=== PATIENT | female | born 1945 | race Caucasian/White ===

== ENCOUNTER 2017-02-24 22:49 | Inpatient (IN) | payer MEDICARE, OTHER ==
[~2017-02-24] VITALS: Ht 157.5 cm; Wt 49.6 kg
[2017-02-24 23:37] VITALS: BP 176/95; PULSE 90; RESP 18; TEMP 98.8; O2SAT 99
[2017-02-25] VITALS (11 sets, daily range): BP systolic 115–174; BP diastolic 78–99; PULSE 92–112; RESP 16–18; TEMP 97.3–99.4; O2SAT 97–100
[2017-02-25] MEDS ORDERED: POTA10CA PO (00:06)
[2017-02-25] MEDS ORDERED: DAPA1TAB PO (00:06)
[2017-02-25] MEDS ORDERED: HUMU70IN (00:06)
[2017-02-25] MEDS ORDERED: SIMV10TA PO (00:06)
[2017-02-25] MEDS ORDERED: ULTR50TA5 PO (00:06)
[2017-02-25] MEDS ORDERED: NORT10CA PO (00:06)
[2017-02-25] MEDS ORDERED: SODIUM CHLORID 0.9% 500 ML INJ 500 ML IV ONE ×2 (01:30→03:45)
[2017-02-25] MEDS ORDERED: ONDANSETRON HCL 4 MG/2 ML VIAL IVP ONE (01:30)
[2017-02-25] MEDS ORDERED: SODIUM CHLORIDE 0.9% FLUSH 10 ML FLUSH IVF PRN ×2 (01:30→06:00)
[2017-02-25 01:39] LABS: AUTOMATED NEUTROPHIL # 5.6 TH/MM3 (1.8-7.7); BASOPHIL % 0.4 % (0.0-2.0); EOSINOPHIL % 0.4 % (0.0-4.0); HEMATOCRIT 47.2 % (35.0-46.0); HEMO FLAGS DIFF FINAL; LYMPH % 20.8 % (9.0-44.0); LYMPHOCYTE # 1.5 TH/MM3 (1.0-4.8); MEAN CELL VOLUME 85.3 FL (80.0-100.0); MEAN CORPUSCULAR HEMOGLOBIN 27.2 PG (27.0-34.0); MEAN CORPUSCULAR HGB CONC 31.9 % (32.0-36.0); MONO % 3.3 % (0.0-8.0); NEUT % 75.1 % (16.0-70.0); PLATELET COUNT 196 TH/MM3 (150-450); RED BLOOD COUNT 5.54 MIL/MM3 (4.00-5.30); RED CELL DISTRIBUTION WIDTH 12.5 % (11.6-17.2); WHITE BLOOD COUNT 7.4 TH/MM3 (4.0-11.0)
[2017-02-25 01:46] LABS: CHLORIDE 108 MEQ/L (98-107); POTASSIUM 3.6 MEQ/L (3.5-5.1); SODIUM (NA) 144 MEQ/L (136-145)
[2017-02-25 01:50] LABS: ANION GAP 13 MEQ/L (5-15); BICARBONATE 22.8 MEQ/L (21.0-32.0)
[2017-02-25 01:51] LABS: BLOOD UREA NITROGEN 18 MG/DL (7-18); MAGNESIUM 2.2 MG/DL (1.5-2.5)
[2017-02-25 01:53] LABS: ALT (GPT) 45 U/L (10-53); AST (GOT) 36 U/L (15-37); GLOMERULAR FILTRATION RATE 49 ML/MIN (>89)
--- NOTE | 2017-02-25 01:53 | RADRPT ---
EXAM DATE/TIME: 02/25/2017 01:42 [facility] COMPARISON: No previous studies available for comparison. INDICATIONS : Chest discomfort, weakness for 1 week MEDICAL HISTORY : None. SURGICAL HISTORY : None. ENCOUNTER: Initial ACUITY: 1 week PAIN SCORE: 0/10 LOCATION: Bilateral chest FINDINGS: A single view of the chest demonstrates the lungs to be symmetrically aerated without evidence of mas s, infiltrate or effusion. The cardiomediastinal contours are unremarkable. Osseous structures are intact. CONCLUSION: Normal examination for a patient of this age. Rashaad Lan MD on February 25, 2017 at 1:51 Board Certified Radiologist. This report was verified electronically.
[2017-02-25 01:55] LABS: TOTAL BILIRUBIN ADULT 0.9 MG/DL (0.2-1.0)
[2017-02-25 01:56] LABS: ALKALINE PHOSPHATASE 98 U/L (45-117)
[2017-02-25 02:04] LABS: CREATINE KINASE 46 U/L (26-192)
[2017-02-25 02:51] LABS: BLOOD, URINE TRACE (NEG); KETONE, URINE 40 mg/dL (NEG); PH, URINE 5.5 (5.0-8.5)
[2017-02-25 02:53] LABS: GLUCOSE,URINE 1000 OR GREATER mg/dL (NEG); NITRITE,URINE POS (NEG); URINE COLOR YELLOW (YELLW/STRAW)
[2017-02-25 02:56] LABS: BACTERIA, URINE MANY /hpf; COMMENT (UR) CULTURE INDICATED; CULTURE IF INDICATED CULTURE INDICATED; SQUAMOUS EPITHELIAL CELL URINE 0-5 /hpf (0-5)
[2017-02-25] MEDS ORDERED: cefTRIAXone INJ 1,000 MG in SODIUM CHLORIDE 0.9% INJ 100 ML IV ONE (03:45)
[2017-02-25] MEDS ORDERED: KETOROLAC TROMETHAMINE 30 MG/ML (IVP) VIAL IV PUSH ONE (03:45)
--- NOTE | 2017-02-25 03:49 | PD ---
HPI Chief Complaint: GI Complaint Time Seen by Provider: 01:27 Travel History International Travel<30 days: No Contact w/Intl Traveler<30days: No Traveled to known affect area: No History of Present Illness HPI 71-year-old female presents to the emergency department by private transportation the care of her sober house for evaluation of nausea and GI upset intermittent vomiting 3 weeks. Patient reportedly states she 5 decided to come to the emergency room because symptoms seem to worsen today. Patient was seen by her primary care provider earlier in the day and was given a refill of her prescription nortriptyline. Patient states that she did take a one-time dose. Patient states she typically has control of her nausea and GI upset if she takes her nortriptyline. Patient denies any diarrhea. Patient's had no bilious emesis hematemesis or coffee-ground emesis. Patient denies melena hematochezia. Patient has not noticed any dysuria frequency or urgency. Patient does not report polyuria or polydipsia or polyphagia. Patient does not report any weight loss or weight change. Patient had no chest pain or shortness of breath. Patient's had some generalized abdominal discomfort just preceding nausea or vomiting but denies any abdominal pain at this time. Patient's had no respiratory illness symptoms. Patient's had no injury or fall. Patient does have history of diabetes anxiety and dyslipidemia. Diabetes reportedly has been well-controlled. Patient's continued to have bowel movements and flatus and occasional diarrhea. PFSH Past Medical History Narrative Medical Dyslipidemia anxiety diabetes gastric bypass cholecystectomy appendectomy; no tobacco use; nursing notes reviewed Anxiety: Yes High Cholesterol: Yes Diabetes: Yes Patient Takes Glucophage: No Diminished Hearing: No Gastrointestinal Disorders: Yes Psychiatric: Yes Tetanus Vaccination: Unknown Influenza Vaccination: Yes ?: Not Menopausal: Yes Tubal Ligation: Yes Past Surgical History Abdominal Surgery: Yes (gastric bypass) Appendectomy: Yes Cholecystectomy: Yes Social History Alcohol Use: No Tobacco Use: No Substance Use: No Allergies-Medications (Allergen,Severity, Reaction): Coded Allergies: No Known Allergies (Unverified , 02/25/17) Reported Meds & Prescriptions Reported Meds & Active Scripts Active Reported Humulin 70-30 Inj (Insulin NPH Isophane-Reg (Human) 70-30 Inj) 1,000 Unit/10 Ml Vial Farxiga (Dapagliflozin) 5 Mg Tab 5 Mg PO DAILY Simvastatin 10 Mg Tab 10 Mg PO DAILY Nortriptyline (Nortriptyline HCl) 10 Mg Cap 10 Mg PO HS Ultram (Tramadol HCl) 50 Mg Tab 50 Mg PO Q8H PRN Potassium Chloride ER (Potassium Chloride) 10 Meq Cap 10 Meq PO BID Review of Systems Except as stated in HPI: all other systems reviewed are Neg General / Constitutional: No: Fever, Chills HENT: No: Congestion Cardiovascular: No: Chest Pain or Discomfort, Palpitations, Tachycardia, Diaphoresis Respiratory: No: Shortness of Breath Gastrointestinal: Positive: Nausea, Vomiting, Diarrhea, Abdominal Pain ( intermittent abdominal discomfort), No: Hematemesis, Hematochezia, Constipation , Loss of Appetite Genitourinary: No: Urgency, Frequency, Dysuria Musculoskeletal: No: Myalgias, Arthralgias Skin: No Rash Neurologic: No: Weakness Psychiatric: Positive: Anxiety Endocrine: No: Polyuria, Polydipsia Hematologic/Lymphatic: No: Lymph Node Enlargement Physical Exam Narrative GENERAL: Thin well-developed well-nourished female in no acute distress no respiratory distress SKIN: Warm and dry. HEAD: Normocephalic. EYES: No scleral icterus. No injection or drainage. NECK: Supple, trachea midline. No JVD or lymphadenopathy. CARDIOVASCULAR: Increased Regular rate and rhythm without murmurs, gallops, or rubs. RESPIRATORY: Breath sounds equal bilaterally. No accessory muscle use. GASTROINTESTINAL: Abdomen soft, non-tender, no guarding or rebound, no palpable mass no palpable pulsatile mass, nondistended. MUSCULOSKELETAL: No cyanosis, or edema. BACK: Nontender without obvious deformity. No CVA tenderness. Data Data Last Documented VS Vital Signs Date Time Temp Pulse Resp B/P Pulse Ox O2 Delivery O2 Flow Rate FiO2 02/25/17 05:19 94 18 137/90 97 Room Air 02/25/17 00:07 98.8 Orders Complete Blood Count With Diff (02/25/17 01:27) Comprehensive Metabolic Panel (02/25/17:) Urinalysis - C+S If Indicated (02/25/17:) Lipase (02/25/17:) Iv Access Insert/Monitor (02/25/17:) Ecg Monitoring (02/25/17:) Oximetry (7/20/17 01:27) Ondansetron Inj (Zofran Inj) (02/25/17 01:30) Sodium Chloride 0.9% Flush (Ns Flush) (02/25/17 01:30) Chest, Single Ap (02/25/17 01:27) Sodium Chlorid 0.9% 500 Ml Inj (Ns 500 M (02/25/17 01:30) Troponin I (02/25/17 01:27) Magnesium (Mg) (02/25/17 01:27) Ckmb (Isoenzyme) Profile (02/25/17 01:27) Electrocardiogram (02/25/17 ) Urine Culture (02/25/17 02:40) Blood Culture (02/25/17 03:44) Ceftriaxone Inj (Rocephin Inj) (02/25/17 03:45) Ketorolac Inj (Toradol Inj) (02/25/17 03:45) Blood Glucose (02/25/17 03:44) Sodium Chlorid 0.9% 500 Ml Inj (Ns 500 M (02/25/17 03:45) Ondansetron Inj (Zofran Inj) (02/25/17 04:00) Ct Abd/Pel W/O Iv Contrast (02/25/17 ) Metoclopramide Inj (Reglan Inj) (02/25/17 06:00) Admit Order (Ed Use Only) (02/25/17 ) ^ Saline Lock (02/25/17 05:55) Resp Oxygen Jose Martin C Titrat 1-4 L (02/25/17 ) Notify Dr: Other (02/25/17 05:55) Sodium Chloride 0.9% Flush (Ns Flush) (02/25/17 09:00) Sodium Chloride 0.9% Flush (Ns Flush) (02/25/17 06:00) Labs Laboratory Tests Test 02/25/17 02/25/17 01:36 02:40 White Blood Count 7.4 TH/MM3 Red Blood Count 5.54 MIL/MM3 Hemoglobin 15.1 GM/DL Hematocrit 47.2 % Mean Corpuscular Volume 85.3 FL Mean Corpuscular Hemoglobin 27.2 PG Mean Corpuscular Hemoglobin 31.9 % Concent Red Cell Distribution Width 12.5 % Platelet Count 196 TH/MM3 Mean Platelet Volume 10.5 FL Neutrophils (%) (Auto) 75.1 % Lymphocytes (%) (Auto) 20.8 % Monocytes (%) (Auto) 3.3 % Eosinophils (%) (Auto) 0.4 % Basophils (%) (Auto) 0.4 % Neutrophils # (Auto) 5.6 TH/MM3 Lymphocytes # (Auto) 1.5 TH/MM3 Monocytes # (Auto) 0.2 TH/MM3 Eosinophils # (Auto) 0.0 TH/MM3 Basophils # (Auto) 0.0 TH/MM3 CBC Comment DIFF FINAL Differential Comment Sodium Level 144 MEQ/L Potassium Level 3.6 MEQ/L Chloride Level 108 MEQ/L Carbon Dioxide Level 22.8 MEQ/L Anion Gap 13 MEQ/L Blood Urea Nitrogen 18 MG/DL Creatinine 1.10 MG/DL Estimat Glomerular Filtration 49 ML/MIN Rate Random Glucose 230 MG/DL Calcium Level 9.5 MG/DL Magnesium Level 2.2 MG/DL Total Bilirubin 0.9 MG/DL Aspartate Amino Transf 36 U/L (AST/SGOT) Alanine Aminotransferase 45 U/L (ALT/SGPT) Alkaline Phosphatase 98 U/L Total Creatine Kinase 46 U/L Troponin I 0.02 NG/ML Total Protein 7.7 GM/DL Albumin 3.8 GM/DL Lipase 153 U/L Urine Color YELLOW Urine Turbidity SLIGHT Urine pH 5.5 Urine Specific [place] 1.033 Urine Protein NEG mg/dL Urine Glucose (UA) 1000 OR GREATER mg/dL Urine Ketones 40 mg/dL Urine Occult Blood TRACE Urine Nitrite POS Urine Bilirubin NEG Urine Leukocyte Esterase NEG Urine RBC 3-5 /hpf Urine WBC 3-5 /hpf Urine Squamous Epithelial 0-5 /hpf Cells Urine Bacteria MANY /hpf Microscopic Urinalysis Comment CULTURE INDICATED MDM Medical Decision Making Medical Screen Exam Complete: Yes Emergency Medical Condition: Yes Medical Record Reviewed: Yes Interpretation(s) CBC & BMP Diagram 02/25/17 01:36 Urine: Positive nitrites and many bacteria culture indicated also positive glucose and ketones EKG sinus rhythm with sinus arrhythmia QS anteriorly and inferiorly age- indeterminate no acute ST elevation or injury pattern change noted CK: 46, not elevated; troponin I 0.02, not elevated LFTs/lipase: Values in normal range Last Impressions Chest X-Ray 02/25/17 7 Signed Impressions: Service Date/Time: February 01:42 - CONCLUSION: Normal examination for a patient of this age. Rashaad J. Siragusa, MD CT abd/pel: no bowel obstruction and no obstructive uropathy CONCLUSION: 1. No calcified renal stones or hydronephrosis. 2. Multiple splenic granulomas. 3. No acute abdominal or pelvic pathology. Rashaad Lan MD on February 25, 2017 at 5:49 Board Certified Radiologist. This report was verified electronically. Differential Diagnosis Generalized weakness, anxiety, vomiting, electrolyte disturbance, uncontrolled diabetes, UTI, diverticulitis, bowel obstruction, gastroparesis, medication withdrawal/adverse reaction; also to consider DKA, ACS, IN Narrative Course Patient administered IV fluid bolus along with Zofran 4 mg IV and specimens collected and sent for resulting Patient given additional fluid bolus as well as repeat dose of Zofran Identified to have abnormal urinalysis given a dose of Rocephin after blood cultures obtained Patient complains of nausea and intermittent tachycardia suspected patient has some withdrawal-type symptoms after being off of her nortriptyline. Blood sugar seems adequately controlled after hydration although does have some mild ketones on urinalysis glucosuria bicarbonate and anion gap are found to be in normal range Patient will be admitted for observation for ongoing fluid hydration IV antibiotics and diabetic management. Chest x-ray reveals no subdiaphragmatic free air and no lobar infiltrate. Some patient for CT abdomen and pelvis Patient returns from CT continues to complain of nausea Reglan 10 mg IV administered plan will be to admit for observation for further evaluation of intractable nausea and vomiting most likely reflects gastroparesis and then ongoing management of UTI no flank pain no fever or chills no white count elevation low suspicion at this time for pyelonephritis or obstructive uropathy. Also consider bowel obstruction although patient with nausea vomiting has had bowel movements and flatus as well as nondistended abdomen. Patient's case discussed with on-call [facility] hospitalist will admit to Dr. Carmichael's service as observation Sepsis Criteria SIRS Criteria (2 or more): Heart rate over 90 Sepsis Criteria (SIRS+source): Infect source susp/known (urine) Physician Communication Physician Communication call placed to service discussed with Juice Sevilla--OBS to Dr Carmichael Diagnosis Primary Impression: Intractable nausea and vomiting Qualified Code: R11.2 - Intractable vomiting with nausea, unspecified vomiting type Additional Impressions: UTI (urinary tract infection) Qualified Code: N39.0 - Urinary tract infection without hematuria, site unspecified Diabetes Admitting Information Admitting Physician Requests: Observation Brianna Hendrickson MD Feb 25, 2017 03:49
[2017-02-25] MEDS ORDERED: ONDANSETRON HCL 4 MG/2 ML VIAL IV PUSH ONE (04:00)
--- NOTE | 2017-02-25 05:55 | RADRPT ---
EXAM DATE/TIME: 02/25/2017 05:32 [facility] COMPARISON: No previous studies available for comparison. INDICATIONS : Hematuria. ORAL CONTRAST: No oral contrast ingested. RADIATION DOSE: 6.32 CTDIvol (mGy) MEDICAL HISTORY : Diabetes mellitus type 2. SURGICAL HISTORY : Appendectomy. Cholecystectomy.Gastric bypass. Tubal ligation. ENCOUNTER: Initial ACUITY: 3 weeks PAIN SCALE: 0/10 LOCATION: abdomen TECHNIQUE: Volumetric scanning of the abdomen and pelvis was performed. Using automated exposure control and ad justment of the mA and/or kV according to patient size, radiation dose was kept as low as reasonably achievable to obtain optimal diagnostic quality images. DICOM format image data is available electro nically for review and comparison. The lack of IV contrast limits the diagnosis for certain organ pa thology. FINDINGS: LOWER LUNGS: The visualized lower lungs are clear. Small hernia at the GE with evidence of previous surgery LIVER: Homogeneous density without lesion. There is no dilation of the biliary tree. No gallbladder, surgi jessica removed. SPLEEN: Normal size without lesion. Multiple splenic granulomas. PANCREAS: Within normal limits. KIDNEYS: Normal in size and shape. There is no mass, stone, or hydronephrosis. The ureters are nondilated. ADRENAL GLANDS: Within normal limits. VASCULAR: There is no aortic aneurysm. BOWEL/MESENTERY: The stomach, small bowel, and colon demonstrate no acute abnormality. There is no free intraperitone al air or fluid. No inflammatory changes. There is stool throughout colon. ABDOMINAL WALL: Within normal limits. RETROPERITONEUM: There is no lymphadenopathy. BLADDER: No wall thickening or mass. No bladder stones. REPRODUCTIVE: Within normal limits. Multiple calcified phleboliths are seen deep in the pelvis. INGUINAL: There is no lymphadenopathy or hernia. MUSCULOSKELETAL: Within normal limits for patient age. Bony degenerative changes. CONCLUSION: 1. No calcified renal stones or hydronephrosis. 2. Multiple splenic granulomas. 3. No acute abdominal or pelvic pathology. Rashaad Lan MD on February 25, 2017 at 5:49 Board Certified Radiologist. This report was verified electronically.
[2017-02-25] MEDS ORDERED: METOCLOPRAMIDE HCL 10 MG/2 ML VIAL IV PUSH ONE (06:00)
[2017-02-25] MEDS: SODIUM CHLOR 0.9% 1000 ML INJ 1,000 ML IV SCH ×2 (07:11→20:35)
[2017-02-25] MEDS: SODIUM CHLORIDE 0.9% FLUSH 10 ML FLUSH IV FLUSH SCH ×2 (08:34→21:00)
[2017-02-25] MEDS ORDERED: POTASSIUM CHLORIDE 10 MEQ CAP PO SCH (09:00)
[2017-02-25] MEDS ORDERED: DAPAGLIFLOZIN 5 MG PO SCH (09:30)
--- NOTE | 2017-02-25 09:45 | MH ---
cc: DARIEN WASHBURN MD DATE OF ADMISSION: 02/25/2017 CHIEF COMPLAINT Abdominal pain, nausea, vomiting, diarrhea. HISTORY OF PRESENT ILLNESS This is a 71-year female with past medical-surgical history significant for hyperlipidemia, anxiety, diabetes mellitus, diabetic gastropathy and gastric bypass surgery, cholecystectomy, appendectomy, brought to the ER at [facility] via private vehicle for evaluation of nausea and GI upset symptoms and intermittent vomiting. The patient reports that she decided to come to the ER after seeing her primary care doctor earlier yesterday and given a prescription for nortriptyline. The patient stated that she did take one-time dose and that typically has controlled her nausea and upset GI symptoms when she takes her nortriptyline. The patient denies any diarrhea in the ER but when I asked the patient the said she has some diarrhea and denies any blood in the stool, denies any blood in the vomitus. Denies any frequent painful urination, burning urination, polyuria, polydipsia. Denies any chest pain, shortness of breath. Has some generalized mild diffuse abdominal discomfort. Other than that, nothing significant. PAST MEDICAL-SURGICAL HISTORY As dictated above. SOCIAL HISTORY Denies smoking or drinking or taking any drugs. Lives at home with a friend. She is a retired hairdresser. FAMILY HISTORY Nothing significant. ALLERGIES No known drug allergies. MEDICATIONS 1. Humulin 70/30, unknown dose and frequency. 2. Farxiga 5 mg p.o. daily. 3. Simvastatin 10 mg p.o. daily. 4. Nortriptyline 10 mg p.o. at bedtime. 5. Ultram 50 mg p.o. q.8 hours. 6. Potassium chloride ER 10 mEq p.o. b.i.d. REVIEW OF SYSTEMS Review of systems is positive for nausea, vomiting, mild diarrhea. All other review of systems are negative. PHYSICAL EXAMINATION GENERAL: This is 71-year female laying on the bed, not in any acute distress. VITAL SIGNS: Temperature 99.4, heart rate 112, respirations 18, blood pressure 162/88, O2 saturation 97% room air. HEENT: Normocephalic, atraumatic. EOMI. PERRLA. Oral mucosa moist. NECK: Supple. No visible thyromegaly or neck mass. Trachea central. CVS: Regular rate and rhythm. RESPIRATIONS: Clear to auscultation bilaterally. ABDOMEN: Soft, nontender. Bowel sounds audible. EXTREMITIES: No cyanosis or clubbing. Full range of motion of all extremities. NEURO: Awake, alert, oriented x 4. No focal deficits. SKIN: Warm and dry. PSYCH: The patient is cooperative. Mood and affect is normal. LABORATORY DATA CBC totally unremarkable except for RBC count 5.54 - high, hematocrit 47.2 - high, MCHC 31.9 - low. BUN of 18, creatinine 1.10, GFR 49, glucose random 230 - high. Troponin-I 0.02, lipase 153. LFTs are normal. Urine examination showed glucose greater than 1000, ketones of 40, trace of occult blood, nitrite positive. Blood culture x 2 done, negative so far. Urine culture pending. IMAGING STUDIES CT of abdomen and pelvis was done, shows normal examination. Chest x-ray was done, shows normal examination. CT abdomen and pelvis was done shows noncalcified renal stone or hydronephrosis, multiple splenic granulomas, no acute abdominal or pelvic pathology. ASSESSMENT AND PLAN 1. This is a 71-year-old female who came to the ER diagnosed with nausea, vomiting secondary to most likely diabetic gastroparesis. The patient is on Zofran 4 mg IV q. 4 hours p.r.n. and metoclopramide 10 mg IV q.6 hours. Nausea and vomiting improved. 2. Urinary tract infection. The patient on Rocephin 1 gram IV daily. 3. History of hyperlipidemia. Continue with simvastatin 10 mg p.o. daily. 4. Diabetes mellitus, ADA 1800 calorie diet. NovoLog low-dose sliding scale. Check blood sugar a.c. and at bedtime. 5. DVT prophylaxis. SCDs. 6. GI prophylaxis. Protonix 40 mg p.o. IV daily. We are going to manage the patient on a daily basis and make recommendations on a daily basis. Darien Washburn MD EA/JESENIA /8:38 AM /9:24 AM
[2017-02-25] MEDS: PANTOPRAZOLE SODIUM 40 MG VIAL IV PUSH SCH (14:10)
[2017-02-25] MEDS: PRAVASTATIN SOD 20 MG TAB PO SCH (14:13)
[2017-02-25] MEDS: POTASSIUM CHLORIDE 10 MEQ CONTROLLED RELEASE TAB PO SCH ×2 (14:22→21:45)
--- NOTE | 2017-02-25 15:25 | EKG ---
Date Performed: 02/25/2017 Time Performed: 01:36:14 PTAGE: 71 years EKG: Sinus rhythm WITH SINUS ARRHYTHMIA POSSIBLE ANTERIOR MYOCARDIAL INFARCTION INFERIOR MYOCARDIAL INFARCTION ABNORMA L ECG NO PREVIOUS TRACING DOCTOR: Ny Deluca Interpretating Date/Time 02/25/2017 15:22:30
[2017-02-25] MEDS: TIMOLOL MALEATE 0.5% OPHT SOLN 5 ML BTL EACH EYE SCH (21:44)
[2017-02-25] MEDS: NORTRIPTYLINE HCL 10 MG CAP PO SCH (21:45)
[2017-02-25] MEDS: ONDANSETRON HCL 4 MG/2 ML VIAL IV PUSH PRN (21:49)
[2017-02-26] VITALS: BP 155/96; PULSE 72; RESP 16; TEMP 98.6; O2SAT 100
[2017-02-26] MEDS ORDERED: TEMAZEPAM 7.5 MG CAP PO PRN (01:00)
[2017-02-26 04:00] VITALS: BP 103/76; PULSE 84; RESP 16; TEMP 97.2; O2SAT 95
[2017-02-26] MEDS: cefTRIAXone 1,000 MG/NS 100 ML IV SCH ×2 (05:16)
[2017-02-26 06:32] LABS: AUTOMATED NEUTROPHIL # 5.6 TH/MM3 (1.8-7.7); BASOPHIL % 0.5 % (0.0-2.0); EOSINOPHIL # 0.1 TH/MM3 (0-0.4); EOSINOPHIL % 0.7 % (0.0-4.0); HEMATOCRIT 40.3 % (35.0-46.0); HEMO FLAGS DIFF FINAL; LYMPHOCYTE # 2.3 TH/MM3 (1.0-4.8); MEAN CELL VOLUME 85.4 FL (80.0-100.0); MEAN CORPUSCULAR HEMOGLOBIN 28.2 PG (27.0-34.0); MONO % 8.1 % (0.0-8.0); NEUT % 64.7 % (16.0-70.0); PLATELET COUNT 172 TH/MM3 (150-450); RED BLOOD COUNT 4.72 MIL/MM3 (4.00-5.30); RED CELL DISTRIBUTION WIDTH 12.8 % (11.6-17.2); WHITE BLOOD COUNT 8.7 TH/MM3 (4.0-11.0)
[2017-02-26 06:43] LABS: CHLORIDE 109 MEQ/L (98-107); POTASSIUM 3.4 MEQ/L (3.5-5.1); SODIUM (NA) 143 MEQ/L (136-145)
[2017-02-26 06:51] LABS: ANION GAP 12 MEQ/L (5-15); BICARBONATE 22.3 MEQ/L (21.0-32.0); BLOOD UREA NITROGEN 15 MG/DL (7-18)
[2017-02-26 06:54] LABS: ALT (GPT) 30 U/L (10-53); AST (GOT) 25 U/L (15-37); GLOMERULAR FILTRATION RATE 55 ML/MIN (>89); TOTAL BILIRUBIN ADULT 0.6 MG/DL (0.2-1.0)
[2017-02-26 06:56] LABS: ALKALINE PHOSPHATASE 80 U/L (45-117)
[2017-02-26 08:00] VITALS: BP 134/81; PULSE 78; RESP 16; TEMP 97.7; O2SAT 96
--- NOTE | 2017-02-26 08:27 | HHI.PR ---
Subjective History of Present Illness Patient deny any complaints no acute issue d/w BELEM Connelly. Low potassium will replace. Review of Systems Constitutional Constitutional: Fatigue, Weakness Vitals/Results Intake & Output 02/25/17 02/25/17 02/26/17 15:00 23:00 07:00 Intake Total 550 ml 524 ml Balance 550 ml 524 ml Intake Oral 550 ml IV Total 524 ml # Voids 2 # Bowel Movements 0 Vital Signs Vital Signs Date Time Temp Pulse Resp B/P Pulse Ox O2 Delivery O2 Flow Rate FiO2 02/26/17 08:00 97.7 78 16 134/81 96 02/26/17 04:00 97.2 84 16 103/76 95 02/26/17 00:00 98.6 72 16 155/96 100 02/25/17 20:35 97 21 02/25/17 20:00 97.3 96 16 115/78 97 02/25/17 16:00 97.5 101 18 143/84 99 02/25/17 12:00 98.2 112 18 152/92 99 CBC/BMP: 02/26/17 0515 02/26/17 0515 Lab Results Laboratory Tests Test 02/26/17 05:15 White Blood Count 8.7 TH/MM3 Red Blood Count 4.72 MIL/MM3 Hemoglobin 13.3 GM/DL Hematocrit 40.3 % Mean Corpuscular Volume 85.4 FL Mean Corpuscular Hemoglobin 28.2 PG Mean Corpuscular Hemoglobin 33.0 % Concent Red Cell Distribution Width 12.8 % Platelet Count 172 TH/MM3 Mean Platelet Volume 9.9 FL Neutrophils (%) (Auto) 64.7 % Lymphocytes (%) (Auto) 26.0 % Monocytes (%) (Auto) 8.1 % Eosinophils (%) (Auto) 0.7 % Basophils (%) (Auto) 0.5 % Neutrophils # (Auto) 5.6 TH/MM3 Lymphocytes # (Auto) 2.3 TH/MM3 Monocytes # (Auto) 0.7 TH/MM3 Eosinophils # (Auto) 0.1 TH/MM3 Basophils # (Auto) 0.0 TH/MM3 CBC Comment DIFF FINAL Differential Comment Sodium Level 143 MEQ/L Potassium Level 3.4 MEQ/L Chloride Level 109 MEQ/L Carbon Dioxide Level 22.3 MEQ/L Anion Gap 12 MEQ/L Blood Urea Nitrogen 15 MG/DL Creatinine 1.00 MG/DL Estimat Glomerular Filtration 55 ML/MIN Rate Random Glucose 150 MG/DL Calcium Level 8.6 MG/DL Total Bilirubin 0.6 MG/DL Aspartate Amino Transf 25 U/L (AST/SGOT) Alanine Aminotransferase 30 U/L (ALT/SGPT) Alkaline Phosphatase 80 U/L Total Protein 6.2 GM/DL Albumin 3.1 GM/DL Physical Exam General General Appearance: No Acute Distress, Comfortable Eyes Eye Exam: Pupils Equal, Pupils Reactive, Sclera White, Extraocular Movement Intact Throat Throat Exam: Oral Mucosa [place] & Moist, Oral Pharynx Normal Neck Neck Exam: Neck Supple, Trachea Midline Pulmonary Resp Exam: Clear Bilaterally, Breath Sounds Equal, No Distress Cardiology CV Exam: Regular, Normal Sinus Rhythm Gastrointestinal/Abdomen GI Exam: Soft, Non-Tender, Bowel Sounds Present Musculoskeletal MS Exam: Normal Tone Integumentary Skin Exam: Clear, Warm, Dry, Intact Extremeties Extremities Exam: No Edema Neurologic Neuro Exam: Alert, Awake, Moving All Extremities Psychiatric Psych Exam: Appropriate Responses VTE Prophylaxis VTE Prophylaxis Device: SCDs PUD Prophylasis PUD Prophylaxis: Protonix Assessment/Plan Assessment/Plan ASSESSMENT AND PLAN 1. This is a 71-year-old female who came to the ER diagnosed with nausea, vomiting secondary to most likely diabetic gastroparesis. The patient is on Zofran 4 mg IV q. 4 hours p.r.n. and metoclopramide 10 mg IV q.6 hours. Nausea and vomiting improved. 2. Urinary tract infection. The patient on Rocephin 1 gram IV daily. recheck UA. 3. History of hyperlipidemia. Continue with simvastatin 10 mg p.o. daily. 4. Diabetes mellitus, ADA 1800 calorie diet. NovoLog low-dose sliding scale. Check blood sugar a.c. and at bedtime. 5. DVT prophylaxis. SCDs. 6. GI prophylaxis. Protonix 40 mg p.o. daily. 7.Low potassium will replace and monitor. check CBC with diff CMP in AM. We are going to manage the patient on a daily basis and make recommendations on a daily basis. Discussed Condition with: Patient Darien Carmichael MD Feb 26, 2017 08:27
[2017-02-26] MEDS ORDERED: POTASSIUM CHLORIDE 10 MEQ CONTROLLED RELEASE TAB PO ONE (08:30)
[2017-02-26] MEDS: TIMOLOL MALEATE 0.5% OPHT SOLN 5 ML BTL EACH EYE SCH ×2 (08:56→22:29)
[2017-02-26] MEDS: SODIUM CHLORIDE 0.9% FLUSH 10 ML FLUSH IV FLUSH SCH ×2 (08:56→21:00)
[2017-02-26] MEDS: PRAVASTATIN SOD 20 MG TAB PO SCH (08:56)
[2017-02-26] MEDS: POTASSIUM CHLORIDE 10 MEQ CONTROLLED RELEASE TAB PO SCH ×2 (08:56→22:19)
[2017-02-26] MEDS: PANTOPRAZOLE SODIUM 40 MG VIAL IV PUSH SCH (08:57)
[2017-02-26] MEDS: SODIUM CHLOR 0.9% 1000 ML INJ 1,000 ML IV SCH ×2 (10:15→23:15)
[2017-02-26] MEDS: ONDANSETRON HCL 4 MG/2 ML VIAL IV PUSH PRN (11:03)
[2017-02-26 12:00] VITALS: BP 169/100; PULSE 71; RESP 16; TEMP 97.8; O2SAT 99
[2017-02-26 12:16] LABS: BLOOD, URINE NEG (NEG); KETONE, URINE 15 mg/dL (NEG); NITRITE,URINE NEG (NEG); PH, URINE 5.5 (5.0-8.5)
[2017-02-26 12:26] LABS: GLUCOSE,URINE 1000 OR GREATER mg/dL (NEG); METHOD OF COLLECTION CLEAN CATCH; URINE COLOR YELLOW (YELLW/STRAW)
[2017-02-26 12:28] LABS: COMMENT (UR) CULT NOT INDICATED; CULTURE IF INDICATED CULT NOT INDICATED; SQUAMOUS EPITHELIAL CELL URINE 0-5 /hpf (0-5); WBC, URINE 0-2 /hpf (0-5)
[2017-02-26 16:00] VITALS: BP 131/76; PULSE 85; RESP 17; TEMP 98; O2SAT 94
[2017-02-26] MEDS: METOCLOPRAMIDE HCL 10 MG/2 ML VIAL IV PRN (16:30)
[2017-02-26 20:00] VITALS: BP 156/100; PULSE 101; RESP 20; TEMP 98.8; O2SAT 100
[2017-02-26] MEDS: traMADol HCL 50 MG TAB PO PRN (20:31)
[2017-02-26] MEDS: NORTRIPTYLINE HCL 10 MG CAP PO SCH (22:18)
[2017-02-26] MEDS: TEMAZEPAM 7.5 MG CAP PO PRN (22:29)
[2017-02-27] VITALS: BP 104/67; PULSE 85; RESP 20; TEMP 97.5; O2SAT 98
[2017-02-27] MEDS: SODIUM CHLOR 0.9% 1000 ML INJ 1,000 ML IV SCH ×2 (00:15→08:38)
[2017-02-27] MEDS: cefTRIAXone 1,000 MG/NS 100 ML IV SCH ×2 (06:08)
[2017-02-27 06:58] LABS: AUTOMATED NEUTROPHIL # 3.5 TH/MM3 (1.8-7.7); BASOPHIL % 0.6 % (0.0-2.0); EOSINOPHIL # 0.1 TH/MM3 (0-0.4); EOSINOPHIL % 1.4 % (0.0-4.0); HEMATOCRIT 36.1 % (35.0-46.0); HEMO FLAGS DIFF FINAL; LYMPH % 43.2 % (9.0-44.0); LYMPHOCYTE # 3.2 TH/MM3 (1.0-4.8); MEAN CELL VOLUME 85.1 FL (80.0-100.0); MEAN CORPUSCULAR HEMOGLOBIN 27.4 PG (27.0-34.0); MEAN CORPUSCULAR HGB CONC 32.2 % (32.0-36.0); NEUT % 45.8 % (16.0-70.0); PLATELET COUNT 174 TH/MM3 (150-450); RED BLOOD COUNT 4.24 MIL/MM3 (4.00-5.30); RED CELL DISTRIBUTION WIDTH 13.1 % (11.6-17.2); WHITE BLOOD COUNT 7.5 TH/MM3 (4.0-11.0)
[2017-02-27 07:24] LABS: ALKALINE PHOSPHATASE 68 U/L (45-117); ALT (GPT) 27 U/L (10-53); ANION GAP 11 MEQ/L (5-15); AST (GOT) 26 U/L (15-37); BICARBONATE 20.3 MEQ/L (21.0-32.0); BLOOD UREA NITROGEN 20 MG/DL (7-18); CHLORIDE 113 MEQ/L (98-107); GLOMERULAR FILTRATION RATE 59 ML/MIN (>89); POTASSIUM 4.2 MEQ/L (3.5-5.1); SODIUM (NA) 144 MEQ/L (136-145); TOTAL BILIRUBIN ADULT 0.4 MG/DL (0.2-1.0)
[2017-02-27 08:00] VITALS: BP 140/90; PULSE 89; RESP 16; TEMP 97.5; O2SAT 100
[2017-02-27] MEDS: POTASSIUM CHLORIDE 10 MEQ CONTROLLED RELEASE TAB PO SCH ×2 (08:31→20:51)
[2017-02-27] MEDS: PRAVASTATIN SOD 20 MG TAB PO SCH (08:31)
[2017-02-27] MEDS: PANTOPRAZOLE SOD 40 MG DELAYED RELEASE TAB PO SCH (08:31)
[2017-02-27] MEDS: METOCLOPRAMIDE HCL 10 MG/2 ML VIAL IV PRN (08:31)
[2017-02-27] MEDS: TIMOLOL MALEATE 0.5% OPHT SOLN 5 ML BTL EACH EYE SCH ×2 (08:32→20:50)
[2017-02-27] MEDS: SODIUM CHLORIDE 0.9% FLUSH 10 ML FLUSH IV FLUSH SCH ×2 (09:00→20:50)
--- NOTE | 2017-02-27 09:45 | HHI.PR ---
Subjective History of Present Illness Patient still have nausea/ vomiting unalbe to tolerate any thing d/w BELEM Connelly. Low potassium resolved repeat urine analysis better. Review of Systems Constitutional Constitutional: Fatigue, Weakness Vitals/Results Intake & Output 02/26/17 02/26/17 02/27/17 15:00 23:00 07:00 Intake Total 1410 ml 1240 ml Balance 1410 ml 1240 ml Intake Oral 510 ml 240 ml IV Total 900 ml 1000 ml # Voids 2 2 # Bowel Movements 1 0 Vital Signs Vital Signs Date Time Temp Pulse Resp B/P Pulse Ox O2 Delivery O2 Flow Rate FiO2 02/27/17 08:00 97.5 89 16 140/90 100 02/27/17 00:00 97.5 85 20 104/67 98 02/26/17 20:00 98.8 101 20 156/100 100 02/26/17 16:00 98.0 85 17 131/76 94 02/26/17 12:00 97.8 71 16 169/100 99 CBC/BMP: 02/27/17 0629 02/27/17 0629 Lab Results Laboratory Tests Test 02/26/17 02/27/17 10:30 06:29 Urine Collection Type CLEAN CATCH Urine Color YELLOW Urine Turbidity CLEAR Urine pH 5.5 Urine Specific [place] 1.012 Urine Protein NEG mg/dL Urine Glucose (UA) 1000 OR GREATER mg/dL Urine Ketones 15 mg/dL Urine Occult Blood NEG Urine Nitrite NEG Urine Bilirubin NEG Urine Leukocyte Esterase NEG Urine WBC 0-2 /hpf Urine Squamous Epithelial 0-5 /hpf Cells Microscopic Urinalysis Comment CULT NOT INDICATED White Blood Count 7.5 TH/MM3 Red Blood Count 4.24 MIL/MM3 Hemoglobin 11.6 GM/DL Hematocrit 36.1 % Mean Corpuscular Volume 85.1 FL Mean Corpuscular Hemoglobin 27.4 PG Mean Corpuscular Hemoglobin 32.2 % Concent Red Cell Distribution Width 13.1 % Platelet Count 174 TH/MM3 Mean Platelet Volume 9.3 FL Neutrophils (%) (Auto) 45.8 % Lymphocytes (%) (Auto) 43.2 % Monocytes (%) (Auto) 9.0 % Eosinophils (%) (Auto) 1.4 % Basophils (%) (Auto) 0.6 % Neutrophils # (Auto) 3.5 TH/MM3 Lymphocytes # (Auto) 3.2 TH/MM3 Monocytes # (Auto) 0.7 TH/MM3 Eosinophils # (Auto) 0.1 TH/MM3 Basophils # (Auto) 0.0 TH/MM3 CBC Comment DIFF FINAL Differential Comment Sodium Level 144 MEQ/L Potassium Level 4.2 MEQ/L Chloride Level 113 MEQ/L Carbon Dioxide Level 20.3 MEQ/L Anion Gap 11 MEQ/L Blood Urea Nitrogen 20 MG/DL Creatinine 0.94 MG/DL Estimat Glomerular Filtration 59 ML/MIN Rate Random Glucose 108 MG/DL Calcium Level 8.3 MG/DL Total Bilirubin 0.4 MG/DL Aspartate Amino Transf 26 U/L (AST/SGOT) Alanine Aminotransferase 27 U/L (ALT/SGPT) Alkaline Phosphatase 68 U/L Total Protein 5.4 GM/DL Albumin 2.6 GM/DL Physical Exam General General Appearance: No Acute Distress, Comfortable Eyes Eye Exam: Pupils Equal, Pupils Reactive, Sclera White, Extraocular Movement Intact Throat Throat Exam: Oral Mucosa Power & Moist, Oral Pharynx Normal Neck Neck Exam: Neck Supple, Trachea Midline Pulmonary Resp Exam: Clear Bilaterally, Breath Sounds Equal, No Distress Cardiology CV Exam: Regular, Normal Sinus Rhythm Gastrointestinal/Abdomen GI Exam: Soft, Non-Tender, Bowel Sounds Present Musculoskeletal MS Exam: Normal Tone Integumentary Skin Exam: Clear, Warm, Dry, Intact Extremeties Extremities Exam: No Edema Neurologic Neuro Exam: Alert, Awake, Moving All Extremities Psychiatric Psych Exam: Appropriate Responses VTE Prophylaxis VTE Prophylaxis Device: SCDs PUD Prophylasis PUD Prophylaxis: Protonix Assessment/Plan Assessment/Plan ASSESSMENT AND PLAN 1. This is a 71-year-old female who came to the ER diagnosed with nausea, vomiting secondary to most likely diabetic gastroparesis. The patient is on Zofran 4 mg IV q. 4 hours p.r.n. and metoclopramide 10 mg IV q.6 hours. Nausea and vomiting still present GI consulted. 2. Urinary tract infection. The patient on Rocephin 1 gram IV daily. recheck UA...better. 3. History of hyperlipidemia. Continue with simvastatin 10 mg p.o. daily. 4. Diabetes mellitus, ADA 1800 calorie diet. NovoLog low-dose sliding scale. Check blood sugar a.c. and at bedtime. 5. DVT prophylaxis. SCDs. 6. GI prophylaxis. Protonix 40 mg p.o. daily. 7.Low potassium resolved. check CBC with diff CMP in AM. We are going to manage the patient on a daily basis and make recommendations on a daily basis. Discussed Condition with: Patient Darien Carmichael MD Feb 27, 2017 09:45
[2017-02-27 12:00] VITALS: BP 165/92; PULSE 88; RESP 16; TEMP 98.3; O2SAT 98
[2017-02-27] MEDS: traMADol HCL 50 MG TAB PO PRN ×2 (14:15→20:53)
[2017-02-27 16:00] VITALS: BP 132/92; PULSE 94; RESP 18; TEMP 98.5; O2SAT 97
[2017-02-27] MEDS: NORTRIPTYLINE HCL 10 MG CAP PO SCH (20:51)
[2017-02-27] MEDS: TEMAZEPAM 7.5 MG CAP PO PRN (20:53)
[2017-02-27 21:04] VITALS: BP 142/87; PULSE 96; RESP 18; TEMP 97.3; O2SAT 98
--- NOTE | 2017-02-27 21:44 | MB ---
cc: JADYN SCOTT M.D. DATE OF CONSULTATION 02/27/[address] Darien Carmichael REASON FOR CONSULTATION Abdominal pain, nausea, vomiting, diarrhea. HISTORY OF PRESENT ILLNESS Ms. Bradford is a very pleasant 71-year-old lady with multiple medical issues, admitted to the hospital with complaints of nausea, vomiting and diarrhea for the last few days. The patient states she has a long history of anxiety that manifests itself mostly with nausea and vomiting, responded well to amitriptyline in the past. She recently relocated here in the area and was also switched to a different anxiety medication that really did not work for her. She saw her local primary care doctor 3 days ago and she was given again amitriptyline, just started that and she says that it is working for her. She has a history of gastric bypass surgery. 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 She does not recall the diagnosis of gastroparesis, as a matter of fact she has me what does it mean even though this is in her medical record. PAST MEDICAL HISTORY Hyperlipidemia, anxiety, diabetes, gastric bypass surgery, cholecystectomy, appendectomy. Questionable gastroparesis, the patient does not know what the diagnosis mean. SOCIAL HISTORY Denies smoking, drinking or drug use. Retired hairdresser. ALLERGIES No known allergies. MEDICATIONS Medications at home: 1. Humulin. 2. Forxiga. 3. Simvastatin. 4. Nortriptyline. 5. Ultram. 6. Potassium chloride. REVIEW OF SYSTEMS At this time she denies any fever or chills, weight loss or weight gain. ENT: No alteration in baseline hearing or visual acuity. PULMONARY: Denies any chest pain, shortness of breath. GASTROINTESTINAL: As above. GENITOURINARY: Denies dysuria, hematuria. HEMATOLOGIC: No history of anemia or bleeding disorder. SKIN: No alteration in baseline skin lesion. NEUROLOGICAL: No history of TIA or CVA kind of symptoms. PHYSICAL EXAMINATION GENERAL: On clinical examination she is sitting comfortable in bed in no acute distress. VITAL SIGNS: Her temperature is 98.5, pulse is 94, respiration 18, blood pressure 132/92, pulse ox is 97. HEENT: PERRLA. NECK: No JVD. No lymphadenopathy. CHEST: Clear to auscultation and palpation. CARDIOVASCULAR: S1-S2. No murmur. ABDOMEN: Soft, nontender. Bowel sounds are present. POLICE LIAISON: Awake, alert, oriented x3. No focal signs identified. LABORATORY DATA Her CBC normal. Her CMP is essentially suggestive of glucose of 108, was 230 when she came. LFTs normal. She also had blood cultures and urine cultures which were negative. No stool studies were sent. IMAGING STUDIES The patient had a CT abdomen and pelvis which showed no calcified renal stones, which was suggestive of multiple splenic granulomas. No calcified renal stones or hydronephrosis. IMPRESSION Ms. Bradford is a very pleasant 71-year-old lady with recurrent nausea and vomiting, possible secondary to diabetic gastroparesis even though the patient states she does not know what this diagnosis means. Urinary tract infection, on antibiotics, resolved at this time. Anxiety, possible cause of her problems, better after starting "nortriptyline." RECOMMENDATIONS Continue Protonix, small meals more often, Zofran p.r.n. IV hydration. If stable, the patient can be discharged home in the morning. If continues to have nausea and vomiting consider upper endoscopy. If discharged followup with GI in 2 weeks. I would like to thank Dr. Darien Carmichael for referring her to our office for consultation. Jadyn Scott MD BSB/EO /8:39 PM /9:27 PM
[2017-02-28 00:15] VITALS: BP 115/74; PULSE 75; RESP 16; TEMP 98.1; O2SAT 97
[2017-02-28] MEDS: cefTRIAXone 1,000 MG/NS 100 ML IV SCH ×2 (06:01)
[2017-02-28 07:34] LABS: BASOPHIL # 0.1 TH/MM3 (0-0.2); BASOPHIL % 0.8 % (0.0-2.0); EOSINOPHIL # 0.1 TH/MM3 (0-0.4); EOSINOPHIL % 1.7 % (0.0-4.0); HEMATOCRIT 36.2 % (35.0-46.0); HEMO FLAGS DIFF FINAL; LYMPH % 46.3 % (9.0-44.0); LYMPHOCYTE # 3.2 TH/MM3 (1.0-4.8); MEAN CORPUSCULAR HEMOGLOBIN 27.5 PG (27.0-34.0); MEAN CORPUSCULAR HGB CONC 32.3 % (32.0-36.0); MONO % 8.3 % (0.0-8.0); NEUT % 42.9 % (16.0-70.0); PLATELET COUNT 162 TH/MM3 (150-450); RED BLOOD COUNT 4.26 MIL/MM3 (4.00-5.30); RED CELL DISTRIBUTION WIDTH 12.7 % (11.6-17.2)
[2017-02-28 07:42] LABS: CHLORIDE 110 MEQ/L (98-107); POTASSIUM 3.9 MEQ/L (3.5-5.1); SODIUM (NA) 141 MEQ/L (136-145)
[2017-02-28 07:46] LABS: ANION GAP 11 MEQ/L (5-15); BICARBONATE 19.7 MEQ/L (21.0-32.0); BLOOD UREA NITROGEN 16 MG/DL (7-18)
[2017-02-28 07:49] LABS: ALT (GPT) 24 U/L (10-53); AST (GOT) 19 U/L (15-37); GLOMERULAR FILTRATION RATE 68 ML/MIN (>89)
[2017-02-28 07:51] LABS: TOTAL BILIRUBIN ADULT 0.3 MG/DL (0.2-1.0)
[2017-02-28 07:52] LABS: ALKALINE PHOSPHATASE 70 U/L (45-117)
[2017-02-28 08:00] VITALS: BP 166/78; PULSE 86; RESP 18; TEMP 97.3; O2SAT 100
[2017-02-28] MEDS: SODIUM CHLORIDE 0.9% FLUSH 10 ML FLUSH IV FLUSH SCH (09:00)
[2017-02-28] MEDS: TIMOLOL MALEATE 0.5% OPHT SOLN 5 ML BTL EACH EYE SCH (09:14)
[2017-02-28] MEDS: PANTOPRAZOLE SOD 40 MG DELAYED RELEASE TAB PO SCH (09:15)
[2017-02-28] MEDS: POTASSIUM CHLORIDE 10 MEQ CONTROLLED RELEASE TAB PO SCH (09:15)
[2017-02-28] MEDS: PRAVASTATIN SOD 20 MG TAB PO SCH (09:15)
--- NOTE | 2017-02-28 10:47 | HHI.PR ---
Subjective History of Present Illness Patient deny nausea/ vomiting able to tolerate food. d/w BELEM Reed. Repeat urine analysis better. Urine culture positive for E. Coli. Review of Systems Constitutional Constitutional: Fatigue, Weakness Vitals/Results Intake & Output 02/27/17 02/27/17 02/28/17 15:00 23:00 07:00 Intake Total 200 ml 2055 ml 1827 ml Balance 200 ml 2055 ml 1827 ml Intake Oral 200 ml IV Total 2055 ml 1827 ml # Voids 3 3 # Bowel Movements 0 Vital Signs Vital Signs Date Time Temp Pulse Resp B/P Pulse Ox O2 Delivery O2 Flow Rate FiO2 02/28/17 08:00 97.3 86 18 166/78 100 02/28/17 04:00 02/28/17 00:15 98.1 75 16 115/74 97 02/27/17 21:04 97.3 96 18 142/87 98 02/27/17 16:00 98.5 94 18 132/92 97 02/27/17 15:15 18 02/27/17 12:00 98.3 88 16 165/92 98 CBC/BMP: 02/28/17 0635 02/28/17 0635 Lab Results Laboratory Tests Test 02/28/17 06:35 White Blood Count 7.0 TH/MM3 Red Blood Count 4.26 MIL/MM3 Hemoglobin 11.7 GM/DL Hematocrit 36.2 % Mean Corpuscular Volume 85.0 FL Mean Corpuscular Hemoglobin 27.5 PG Mean Corpuscular Hemoglobin 32.3 % Concent Red Cell Distribution Width 12.7 % Platelet Count 162 TH/MM3 Mean Platelet Volume 9.4 FL Neutrophils (%) (Auto) 42.9 % Lymphocytes (%) (Auto) 46.3 % Monocytes (%) (Auto) 8.3 % Eosinophils (%) (Auto) 1.7 % Basophils (%) (Auto) 0.8 % Neutrophils # (Auto) 3.0 TH/MM3 Lymphocytes # (Auto) 3.2 TH/MM3 Monocytes # (Auto) 0.6 TH/MM3 Eosinophils # (Auto) 0.1 TH/MM3 Basophils # (Auto) 0.1 TH/MM3 CBC Comment DIFF FINAL Differential Comment Sodium Level 141 MEQ/L Potassium Level 3.9 MEQ/L Chloride Level 110 MEQ/L Carbon Dioxide Level 19.7 MEQ/L Anion Gap 11 MEQ/L Blood Urea Nitrogen 16 MG/DL Creatinine 0.83 MG/DL Estimat Glomerular Filtration 68 ML/MIN Rate Random Glucose 85 MG/DL Calcium Level 8.5 MG/DL Total Bilirubin 0.3 MG/DL Aspartate Amino Transf 19 U/L (AST/SGOT) Alanine Aminotransferase 24 U/L (ALT/SGPT) Alkaline Phosphatase 70 U/L Total Protein 5.4 GM/DL Albumin 2.6 GM/DL Physical Exam General General Appearance: No Acute Distress, Comfortable Eyes Eye Exam: Pupils Equal, Pupils Reactive, Sclera White, Extraocular Movement Intact Throat Throat Exam: Oral Mucosa Urich & Moist, Oral Pharynx Normal Neck Neck Exam: Neck Supple, Trachea Midline Pulmonary Resp Exam: Clear Bilaterally, Breath Sounds Equal, No Distress Cardiology CV Exam: Regular, Normal Sinus Rhythm Gastrointestinal/Abdomen GI Exam: Soft, Non-Tender, Bowel Sounds Present Musculoskeletal MS Exam: Normal Tone Integumentary Skin Exam: Clear, Warm, Dry, Intact Extremeties Extremities Exam: No Edema Neurologic Neuro Exam: Alert, Awake, Moving All Extremities Psychiatric Psych Exam: Appropriate Responses VTE Prophylaxis VTE Prophylaxis Device: SCDs PUD Prophylasis PUD Prophylaxis: Protonix Assessment/Plan Assessment/Plan ASSESSMENT AND PLAN 1. This is a 71-year-old female who came to the ER diagnosed with nausea, vomiting secondary to most likely diabetic gastroparesis. The patient is on Zofran 4 mg IV q. 4 hours p.r.n. and metoclopramide 10 mg IV q.6 hours. Nausea and vomiting still present GI input noted. 2. Urinary tract infection. The patient on Rocephin 1 gram IV daily. recheck UA...better.Urine culture positive for E. Coli. 3. History of hyperlipidemia. Continue with simvastatin 10 mg p.o. daily. 4. Diabetes mellitus, ADA 1800 calorie diet. NovoLog low-dose sliding scale. Check blood sugar a.c. and at bedtime. 5. DVT prophylaxis. SCDs. 6. GI prophylaxis. Protonix 40 mg p.o. daily. 7.Low potassium resolved. ok to DC Home today. F/U with pcp/ GI 1 week. Discussed Condition with: Patient Darien Carmichael MD Feb 28, 2017 10:47 Darien Carmichael MD Feb 28, 2017 10:47
[2017-02-28] MEDS ORDERED: CEFU1TAB20 PO (10:59)
[2017-02-28 12:00] VITALS: BP 164/76; PULSE 84; RESP 18; TEMP 97.6; O2SAT 98
[2017-02-28] MEDS ORDERED: ZOFR4TAB3 SL (12:07)
[2017-02-28] MEDS: ONDANSETRON HCL 4 MG/2 ML VIAL IV PUSH PRN (12:13)
[2017-02-28] MEDS: SODIUM CHLOR 0.9% 1000 ML INJ 1,000 ML IV SCH (15:15)
[2017-02-28 16:00] VITALS: BP 145/87; PULSE 96; RESP 16; TEMP 97; O2SAT 100
== END 2017-02-28 17:49 | disposition home or self-care (01) | DRG 74 ==
LOC: PHED 22:49 → PHEDA 02-25 05:57 → PH3A 02-25 07:48 → OBSVTOIN 02-27 09:45
PROVIDERS: ADMIT Family Medicine; ATTEND Family Medicine
DX: E11.43 Type 2 diabetes mellitus with diabetic autonomic (poly)neuropathy (principal); N39.0 Urinary tract infection, site not specified; Z79.4 Long term (current) use of insulin; B96.20 Unspecified Escherichia coli [E. coli] as the cause of diseases classified elsewhere; E78.5 Hyperlipidemia, unspecified; F41.9 Anxiety disorder, unspecified; K31.84 Gastroparesis; G47.00 Insomnia, unspecified
CPT/HCPCS: 71010; 74176; 80053; 81001; 82550; 82948; 83690; 83735; 84484; 85025; 87040; 87077; 87086; 87186; 93005; 96361; 96365; 96374; 96375; 96376; C9113; G0378; J0696; J1885; J2405; J2765; J7030; J7040